=== PATIENT | male | born 1985 | race Caucasian/White ===

== ENCOUNTER 2018-05-28 02:59 | Emergency (ER) | payer OTHER ==
[~2018-05-28] VITALS: Ht 190.5 cm; Wt 120.2 kg
[~2018-05-28 02:59] MED LIST: AMOX875T PO; CLIN150C14 PO; HYDR-2155 PO; TRAM50TA PO
[2018-05-28] MEDS ORDERED: MVI, ADULT NO.4 WITH VIT K 10 ML, FOLIC ACID SYRINGE for ER 1 MG, THIAMINE INJ 100 MG i... IV ONE ×4 (03:15)
[2018-05-28] MEDS ORDERED: hydrOXYzine HCL 25 MG TABLET PO STA (03:16)
[2018-05-28] MEDS ORDERED: THIAMINE 200 MG/2 ML VIAL. IV ONE (03:20)
[2018-05-28] MEDS ORDERED: FOLIC ACID 5 MG/ML SYRINGE for ER IV ONE (03:20)
[2018-05-28] MEDS ORDERED: MVI, ADULT NO.4 WITH VIT K 10 ML VIAL IV ONE (03:20)
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
[2018-05-28 03:23] LABS: BASO % 0 % (0-3); EOS # 0.3 x10^3/uL (0.0-0.7); EOS % 3 % (0-3); HEMATOCRIT 45.9 % (39.0-53.0); HEMOGLOBIN 15.7 g/dL (13.0-17.5); LYMPH # 2.4 x10^3/uL (1.0-4.8); LYMPH % 27 % (24-48); MEAN CORPUSCULAR HEMOGLOBIN 32 pg (25-35); MEAN CORPUSCULAR HGB CONC 34 g/dL (31-37); MEAN CORPUSCULAR VOLUME 95 fL (79-100); MONO # 0.6 x10^3/uL (0.0-1.1); MONO % 7 % (0-9); NEUT # 5.7 x10^3uL (1.8-7.7); NEUT % 63 % (31-73); PLATELET COUNT 284 x10^3/uL (140-400); RED BLOOD COUNT 4.86 x10^6/uL (4.30-5.70); RED CELL DISTRIBUTION WIDTH 13.7 % (11.5-14.5); WHITE BLOOD COUNT 9.1 x10^3/uL (4.0-11.0)
[2018-05-28 03:39] LABS: PLT ESTIMATE ADEQUATE (ADEQUATE)
[2018-05-28 03:43] LABS: ALBUMIN/GLOBULIN RATIO 0.9 (1.0-1.7); CALCIUM 8.4 mg/dL (8.5-10.1); CREATININE 1.1 mg/dL (0.7-1.3); GFR 77.6; POTASSIUM 3.3 mmol/L (3.5-5.1); TOTAL BILIRUBIN 0.4 mg/dL (0.2-1.0); TOTAL PROTEIN 8.3 g/dL (6.4-8.2)
[2018-05-28 04:38] LABS: BARBITURATES NEG (NEG); BENZODIAZEPINES NEG (NEG); CANNABINOIDS NEG (NEG); CLARITY,URINE CLEAR; COCAINE NEG (NEG); COLOR,URINE YELLOW; METHADONE NEG (NEG); OPIATES NEG (NEG); PHENCYCLIDINE NEG (NEG)
[2018-05-28 04:39] LABS: BACTERIA,URINE 0 /HPF (0-FEW); BILIRUBIN,URINE NEG (NEG); GLUCOSE,URINE NEG (NEG); NITRITE,URINE NEG (NEG); RBC,URINE 0 /HPF (0-2); SQUAMOUS EPITHELIAL CELL,UR OCC /LPF; UROBILINOGEN,URINE 0.2 mg/dL (0.2 mg/dL); WBC,URINE RARE /HPF (0-4)
[2018-05-28 04:40] LABS: AMPHETAMINE/METHAMPHETAMINE NEG (NEG)
[2018-05-28] MEDS ORDERED: KETOROLAC 30 MG/ML VIAL. IV ONE (05:00)
[2018-05-28] MEDS ORDERED: LORazepam 2 MG/ML VIAL IV ONE (06:15)
[2018-05-28 11:02] VITALS: BP 124/96
== END 2018-05-28 11:08 | disposition home or self-care (01) ==
LOC: ER 02:59 → EEVIPCON 02:59 → ER 11:08
DX: R45.851 Suicidal ideations (principal); F10.129 Alcohol abuse with intoxication, unspecified; F41.9 Anxiety disorder, unspecified; M54.89 Other dorsalgia; Z88.6 Allergy status to analgesic agent; Z88.5 Allergy status to narcotic agent; Y90.7 Blood alcohol level of 200-239 mg/100 ml
CPT/HCPCS: 36415; 80053; 80307; 81001; 82947; 85025; 96365; 96375; 99284; G0480; J1885; J2060; J7030

== ENCOUNTER 2019-10-01 02:04 | Inpatient (IN) | payer OTHER ==
[2019-10-01] VITALS (20 sets, daily range): BP systolic 101–168; BP diastolic 60–92
[~2019-10-01] VITALS: Ht 190.5 cm; Wt 117.4 kg
[2019-10-01] MEDS ORDERED: IV RINGERS SOLUTION,LACTATED 1,000 ML IV SCH (02:16)
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
[2019-10-01] MEDS ORDERED: SODIUM BICARB ADULT 8.4% 50 MEQ/50 ML DISP.SYRIN. IV ONE (02:30)
[2019-10-01] MEDS ORDERED: SODIUM BICARBONATE 50 MEQ/50 ML VIAL. ONE (02:34)
[2019-10-01 02:43] LABS: BASO # 0.1 x10^3/uL (0.0-0.2); BASO % 1 % (0-3); EOS # 0.1 x10^3/uL (0.0-0.7); EOS % 1 % (0-3); HEMATOCRIT 42.7 % (39.0-53.0); HEMOGLOBIN 14.8 g/dL (13.0-17.5); LYMPH # 2.4 x10^3/uL (1.0-4.8); LYMPH % 23 % (24-48); MEAN CORPUSCULAR HEMOGLOBIN 32 pg (25-35); MEAN CORPUSCULAR HGB CONC 35 g/dL (31-37); MEAN CORPUSCULAR VOLUME 93 fL (79-100); MONO # 0.6 x10^3/uL (0.0-1.1); MONO % 6 % (0-9); NEUT # 7.2 x10^3uL (1.8-7.7); NEUT % 69 % (31-73); PLATELET COUNT 255 x10^3/uL (140-400); RED BLOOD COUNT 4.61 x10^6/uL (4.30-5.70); RED CELL DISTRIBUTION WIDTH 13.5 % (11.5-14.5); WHITE BLOOD COUNT 10.5 x10^3/uL (4.0-11.0)
[2019-10-01 02:47] LABS: BGAS PH 7.5 (7.35-7.46)
[2019-10-01 02:58] LABS: ETHANOL < 10 mg/dL (0-10)
[2019-10-01 02:59] LABS: ACETAMIN < 2.0 mcg/mL (10-30)
[2019-10-01 03:01] LABS: BACTERIA,URINE 0 /HPF (0-FEW); BILIRUBIN,URINE NEG (NEG); CLARITY,URINE CLEAR; COLOR,URINE YELLOW; GLUCOSE,URINE NEG (NEG); NITRITE,URINE NEG (NEG); RBC,URINE 0 /HPF (0-2); SQUAMOUS EPITHELIAL CELL,UR OCC /LPF; UROBILINOGEN,URINE 0.2 mg/dL (0.2 mg/dL); WBC,URINE OCC /HPF (0-4)
[2019-10-01 03:03] LABS: AMPHETAMINE/METHAMPHETAMINE NEG (NEG); BARBITURATES NEG (NEG); BENZODIAZEPINES NEG (NEG); CANNABINOIDS NEG (NEG); COCAINE NEG (NEG); METHADONE NEG (NEG); OPIATES NEG (NEG); PHENCYCLIDINE NEG (NEG)
--- NOTE | 2019-10-01 03:04 | EKG ---
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
--- NOTE | 2019-10-01 03:06 | RAD ---
EXAM: AP View of the chest DATE: 10/01/2019 2:16 AM INDICATION: Reason: Overdose on large amount of pills / Spl. Instructions: / History: COMPARISON: No Prior FINDINGS: The heart is not enlarged. Mediastinal and hilar contours are normal. No focal parenchymal airspace opacity. No pleural effusion or pneumothorax. IMPRESSION: 1. No radiographic evidence for acute cardiopulmonary process. Electronically signed by: Carlyle Munoz MD (10/01/2019 3:03 AM) [id number]
[2019-10-01 03:07] LABS: ALBUMIN 4.1 g/dL (3.4-5.0); CALCIUM 9.1 mg/dL (8.5-10.1); CREATININE 1.3 mg/dL (0.7-1.3); DIRECT BILIRUBIN 0.2 mg/dL (0.0-0.2); GFR 63.6; MAGNESIUM 1.8 mg/dL (1.8-2.4); TOTAL BILIRUBIN 0.8 mg/dL (0.2-1.0); TOTAL PROTEIN 7.8 g/dL (6.4-8.2)
[2019-10-01 03:19] LABS: POTASSIUM 2.8 mmol/L (3.5-5.1)
[2019-10-01] MEDS ORDERED: MAGNESIUM HYDROXIDE 2,400 MG/30 ML ORAL.SUSP. PO ONE (03:30)
[2019-10-01] MEDS ORDERED: POTASSIUM CHLORIDE 20 MEQ TABLET.ER. PO ONE (03:30)
[2019-10-01] MEDS: IPRATRPIUM/ALBUTEROL 0.5/2.5MG 3 ML NEBU. NEB SCH ×4 (05:18→19:45)
--- NOTE | 2019-10-01 05:30 | EKG ---
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
[2019-10-01] MEDS: IV RINGERS SOLUTION,LACTATED 1,000 ML IV SCH ×3 (05:45→17:04)
[2019-10-01 06:36] LABS: ACETAMIN < 2.0 mcg/mL (10-30); SALIC 2.8 mg/dL (2.8-20.0)
[2019-10-01] MEDS ORDERED: QUET100T PO (07:20)
--- NOTE | 2019-10-01 08:30 | NUR ---
The patient, RABIA GONZALEZ, 34 y/o, M admitted by MARTÍNEZ TESFAYE MD, was given written information regarding hospital policies, unit procedures and contact persons. Valuables were checked and left in room. Patient has clothes, wallet and empty bottle of Seroquel. Nurse attempted to call sisterPayton but phone number did not work. Nurse also attempted to call patients cell phone but phone was turned off. Patient arrived to unit via EMS to ICU 2, vitals obtained and within normal limits. O2 sats remains at 96% on room air, placed on 2L and CO2 monitoring. Respirations at 7-9, using accessory muscles and snoring. Appears to be heavily sedated and not responding to staff or sternal rub. Pupils pinpoint and reactive. [place] placed upon arrival to unit with 800cc of clear output noted. Respiratory and Dr. Tesfaye notified of patients condition, will monitor patient for respiratory depression due to overdose of Seroquel. Dr Tesfaye at this times states patient is stable and to continue to monitor, orders to give patient K+20MEQ IV and CMP for AM. Per ER nurse, patient states that he took around 3000mg or the entire bottle of 100mg tablets of Seroquel.
[2019-10-01 08:36] LABS: BASO # 0.1 x10^3/uL (0.0-0.2); BASO % 1 % (0-3); EOS # 0.2 x10^3/uL (0.0-0.7); EOS % 2 % (0-3); HEMATOCRIT 39.2 % (39.0-53.0); HEMOGLOBIN 13.7 g/dL (13.0-17.5); LYMPH # 2.1 x10^3/uL (1.0-4.8); LYMPH % 22 % (24-48); MEAN CORPUSCULAR HEMOGLOBIN 32 pg (25-35); MEAN CORPUSCULAR HGB CONC 35 g/dL (31-37); MEAN CORPUSCULAR VOLUME 93 fL (79-100); MONO # 0.6 x10^3/uL (0.0-1.1); MONO % 7 % (0-9); NEUT # 6.4 x10^3uL (1.8-7.7); NEUT % 68 % (31-73); PLATELET COUNT 231 x10^3/uL (140-400); RED BLOOD COUNT 4.23 x10^6/uL (4.30-5.70); RED CELL DISTRIBUTION WIDTH 13.4 % (11.5-14.5); WHITE BLOOD COUNT 9.5 x10^3/uL (4.0-11.0)
--- NOTE | 2019-10-01 08:48 | EKG ---
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
[2019-10-01 09:10] LABS: ALBUMIN 3.5 g/dL (3.4-5.0); ALBUMIN/GLOBULIN RATIO 1.1 (1.0-1.7); CALCIUM 8.3 mg/dL (8.5-10.1); CREATININE 1.1 mg/dL (0.7-1.3); GFR 77.1; POTASSIUM 3.4 mmol/L (3.5-5.1); TOTAL BILIRUBIN 0.9 mg/dL (0.2-1.0); TOTAL PROTEIN 6.8 g/dL (6.4-8.2)
--- NOTE | 2019-10-01 09:34 | HP ---
ADMIT DATE: 10/01/2019 ATTENDING PHYSICIAN: Martínez Tesfaye MD CHIEF COMPLAINT: Drug overdose. HISTORY OF PRESENT ILLNESS: The patient is a 34-year-old gentleman admitted through the ED with suicidal ideations. He states that he had a bottle of Seroquel tablets 100 mg every, 30 pills. He stated when he was awake, "I was trying to kill myself." He presented with sedation. He states that there has been previous attempt to kill himself. He has underlying depression, anxiety and he has chronic alcoholism. He also is a heavy smoker. No other family is available here. He is a poor historian. There is definite previous psychiatric history with suicide attempt. PAST MEDICAL HISTORY: Significant for the depression and anxiety, chronic alcoholism, bipolar depression. ALLERGIES: he has allergies to MORPHINE and TRAMADOL. MEDICATIONS: Prescription meds Seroquel 100 mg daily. He took the whole bottle. Evidently it was a full bottle. FAMILY HISTORY: Unobtainable. REVIEW OF SYSTEMS: Unobtainable. PHYSICAL EXAMINATION: GENERAL: When I saw him, this is a healthy young man who is asleep and poorly arousable. VITAL SIGNS: His initial vital signs showed a blood pressure of 130/60, his pulse was 94 per minute when I saw him. Respiratory rate 10 per minute, oxygen saturation 100% on 2 liters of supplemental oxygen. HEENT: Head is without trauma. Pupils are reactive. There is an old scar over the left eyebrow. Sclerae are nonicteric. Oropharynx is clear. NECK: Supple. No stridor at this time. No thyromegaly or airway obstruction. He has good air movement. LUNGS: Otherwise clear with good air movement. CARDIOVASCULAR: Showed regular heart tones. No obvious gallops. Peripheral pulses are palpable and full. ABDOMEN: Soft, nontender, no organomegaly. Bowel sounds were hypoactive. EXTREMITIES: Showed no cyanosis or edema. NEUROLOGIC: The patient is fast asleep and poorly arousable. A [place] catheter is in place. PERTINENT LABORATORY STUDIES: Hemoglobin is 14.8 g/dL with white count of 10,500. Chemistry panel showed potassium of 2.8 mEq. Electrolytes otherwise within normal range. Liver functions were normal. Toxicology; salicylate level was negative. Opiate screen negative. Tylenol level negative. The rest of the urine drug screen is negative. Alcohol level less than 10. ASSESSMENT: 1. This 34-year-old gentleman in a suicide attempt took a whole bottle of Seroquel. He is very sedated from the medication. 2. Underlying bipolar depression. 3. Previous history of suicide attempt. 4. Anxiety component. 5. Incidental finding of hypokalemia, asymptomatic. PLAN: 1. Admit to the ICU. 2. I will order some oral supplementation with serial chemistries. 3. We will monitor his airway status saturations and heart rate. 4. [place] catheter in place. 5. N.p.o. until he wakes. 6. Serial chemistries. MARTÍNEZ TESFAYE MD DR: LUCINA/sara JOB#: [id number] / [id number]
[2019-10-01] MEDS: POTASSIUM CHLORIDE 20MEQ 100 ML IV SCH ×2 (10:00→10:57)
--- NOTE | 2019-10-01 10:30 | NUR ---
Patient moaning and arouses to light-moderate painful stimuli, at times patient will sit up in bed and then lay back and produce a strong cough. Nurse performs oral suction at time due to coughing up sputum. Patients vitals remain stable, respirations remain at 9-10. Nurse spoke with poison control in regards to recent EKG results, states that QTC is a little better. Notified poison control that physician stated there is no need to have EKG monitoring q3h and would like this discontinued. Poison Control, [place] stated "that is okay, it is important that we saw the trend within the first 6 hours. It would be important to have another EKG be completed every shift or in the morning." Nurse confirmed that an EKG will be ordered tomorrow AM. Poison Control also stated to observe any elevation within the AVR on the EKG monitoring as this can show if patient is close to having seizures. Poison control faxed protocol at this time.
--- NOTE | 2019-10-01 12:39 | NUR ---
Patient resting, appears to be arousing more. Starting to sit up and look at staff but is still not verbal or responding appropriately.
--- NOTE | 2019-10-01 16:27 | EKG ---
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
--- NOTE | 2019-10-01 17:15 | NUR ---
Patient awake and starting to respond to staff and requesting something to drink. Able to swallow without difficulty and was able to finish around 250 of water. Patient remains on 1:1 observation. Patient appears restless and picking at bedding but able to redirect. Will continue to monitor.
[2019-10-01] MEDS ORDERED: LABETALOL 20 MG/4 ML DISP.SYRIN. IVP PRN (18:00)
--- NOTE | 2019-10-01 18:00 | NUR ---
Patient started to hallucinate and jumped out of bed, patient assisted back onto bedside by nursing staff. Nurse notified security and plastic sheets finishing supervisor for [employer]. During this time patients HR elevated to 189, patient started to breath heavily, nursing staff were able to reposition back into bed and redirect patient explaining that he is in a safe environment.
--- NOTE | 2019-10-01 18:10 | NUR ---
Dr Rodgers notified of patients condition. Patient states that he had chest pain and pointed to middle of chest. Nurse asked patient if he was continueing to have chest pain, patient shook head no. HR at this time remained in 140s. BP Stable. Orders to give Labetolol 10mg PRN q2h if HR over 150s. Patient is very anxious, hallucinating and picking at things like the blanket and appears to be seeing things that are not there. Patient is able to verbalize wants but at times does not make sense but is requesting water and wanting to go home.
--- NOTE | 2019-10-01 18:30 | NUR ---
Patient continues to be very agitated and restless, per Poison Control: No labetalol due to cardiac effects and recommend to only give Ativan when patient starts to become restless. Recommend 2-5mg per dose to get initial control q15min till control and then 1-2mg. 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 States we are treating like ETOH Withdrawl and there will be a 22hr half life. Dr Rodgers notified by Brigid TIRADO, orders to give Ativan 1mg q 2 hour prn and EKG.
--- NOTE | 2019-10-01 19:45 | NUR ---
Treatment not given. Patient has no pulmonary history. Patient's lung sounds are clear. Patient has a resting heart rate in the 110's-120 and is agitated. Treatments were ER 24 order. Patient does not require scheduled treatments. Albuterol prn could be ordered incase a treatment is needed. Nagi BELTRAN
--- NOTE | 2019-10-01 22:37 | EKG ---
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
--- NOTE | 2019-10-01 23:00 | NUR ---
Spoke to rep from Poison control regarding pt status. We talked current VS and that he was running a temp 101.3 orally with flushed face. She said that is part of the reaction to the seroquel dose he took. We talked about intake and output and that he wasn't taking anything in orally recommend IVFs. She asked what latest two EKG reading were in comparison to each and to continue to monitor. AVR if greater than two boxes on the R or QRS greater than 110 they would recommend bicarb replacement. We discussed the potassium being replaced earlier. And that another EKG will be taken in the am and set of labs. Just continue to watch his progress and a rep will call back in the morning. Placing 3 ice packs to pt side to help lower the temp and decreased the room temp and kept only a sheet on pt.
[2019-10-01] MEDS ORDERED: ACETAMINOPHEN 650 MG SUPP.RECT. PR PRN (23:30)
[2019-10-01] MEDS: IV NORMAL SALINE 1,000ML 1,000 ML IV SCH (23:38)
[2019-10-02] VITALS (21 sets, daily range): BP systolic 98–171; BP diastolic 58–111
--- NOTE | 2019-10-02 04:57 | NUR ---
Pt sleeping/sedated currently. VSS, afebrile, on 2l o2 per NC with co2 monitoring. Pt able to squeeze my hands with both of his hands at my 0400 assessment. Pt has required multiple doses of ativan to get through his agitated/impulsive state. Pt to have am labs drawn and another EKG done. Pt tolerating IVFs with good output in martines. Continue with 1:1 sitter.
[2019-10-02 06:37] LABS: BASO # 0.1 x10^3/uL (0.0-0.2); BASO % 0 % (0-3); EOS # 0.1 x10^3/uL (0.0-0.7); EOS % 0 % (0-3); HEMATOCRIT 40.7 % (39.0-53.0); HEMOGLOBIN 14.1 g/dL (13.0-17.5); LYMPH # 1.3 x10^3/uL (1.0-4.8); LYMPH % 7 % (24-48); MEAN CORPUSCULAR HEMOGLOBIN 32 pg (25-35); MEAN CORPUSCULAR HGB CONC 35 g/dL (31-37); MEAN CORPUSCULAR VOLUME 93 fL (79-100); MONO # 0.9 x10^3/uL (0.0-1.1); MONO % 5 % (0-9); NEUT # 15.6 x10^3uL (1.8-7.7); NEUT % 87 % (31-73); PLATELET COUNT 216 x10^3/uL (140-400); RED BLOOD COUNT 4.39 x10^6/uL (4.30-5.70); RED CELL DISTRIBUTION WIDTH 13.5 % (11.5-14.5); WHITE BLOOD COUNT 17.9 x10^3/uL (4.0-11.0)
[2019-10-02 06:55] LABS: ALBUMIN 3.3 g/dL (3.4-5.0); ALBUMIN/GLOBULIN RATIO 0.9 (1.0-1.7); CALCIUM 8.6 mg/dL (8.5-10.1); CREATININE 1.2 mg/dL (0.7-1.3); GFR 69.7; POTASSIUM 4.1 mmol/L (3.5-5.1); TOTAL BILIRUBIN 1.1 mg/dL (0.2-1.0)
[2019-10-02] MEDS: IV NORMAL SALINE 1,000ML 1,000 ML IV SCH ×2 (07:24→17:33)
--- NOTE | 2019-10-02 08:30 | NUR ---
Patient remains 1:1 due to fall and SI precautions. Patient continues to be restless and agitated, startles easily and picks at things in the air and at blankets. Patient is not able to verbalize where he is or why he is here, continues to have very garbled, slurred speech. Mouth is dry with no open sores noted, continue to perform oral care and swabs.
--- NOTE | 2019-10-02 10:30 | NUR ---
Spoke to rep from Poison control regarding pt status. Nurse discussed current VS, labs and patients condition; states that he is having serotonin syndrome and will fax over information in regards to management of serotonin toxicity. No elevated temps so far this shift, will continue to monitor. Discussed intake and output, recommend IVFs. She asked what latest EKG reading was and states that it is better and to continue to monitor.
[2019-10-02 11:21] LABS: % ATYL 1 % (0-0); % BANDS 4 % (0-9); % BASOS 1 % (0-3); % LYMPHS 10 % (24-48); % MONOS 4 % (0-10); % SEGS 80 % (35-66)
[2019-10-02 11:22] LABS: PLT ESTIMATE ADEQUATE (ADEQUATE)
--- NOTE | 2019-10-02 12:19 | NUR ---
Patient continues to be restless and trying to get out of bed, continues to pick at the blankets and grab at nursing staff. Additional PRN ativan given. Vitals obtained and within normal limits. Awaiting for Dr Fritz to see patient. [place] cath in place with adequate output and continues on IV fluids for Hydration.
--- NOTE | 2019-10-02 12:44 | EKG ---
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
--- NOTE | 2019-10-02 17:40 | RAD ---
CHEST AP ONLY INDICATION: Reason: shortness of breath , leukocyosis / Spl. Instructions: / History: . COMPARISON STUDY: 10/01/2019. FINDINGS: Lungs: Low lung volume. No focal airspace disease. Normal pulmonary vasculature. Pleura: No pleural effusion or pneumothorax. Heart and Mediastinum: Stable cardiomediastinal silhouette and great vessels. IMPRESSION: Low lung volume. No consolidation. Electronically signed by: Viktor Shaw MD (10/02/2019 5:37 PM) [facility]ITAL[facility]
--- NOTE | 2019-10-02 17:52 | NUR ---
Dr Fritz here to see patient, plan is to increase PRN Ativan and to give 4mg at this time. Patient attempting to get out of the bed and remains restless. Nurse spoke with poison control, states to ask doctor to monitor for clonus, repeat EKG in AM and monitor CK and renal function. Recommends administrations of ativan or use of physostigmine. Chest xray completed due to elevated temp and risk of aspiration. Patient remains on room air at this time, sats 96%. Able to take small sips of water and bites of pudding when patient is more awake.
--- NOTE | 2019-10-02 18:36 | PN ---
DATE: 10/02/2019 SUBJECTIVE: The patient is a 34-year-old male patient who was admitted to the Emergency Department with suicidal attempt. He apparently took about 30 tablets of 100 mg strength of Seroquel, stating that he was trying to kill himself. He presented with sedation. He states that has been previous attempts to kill himself. He has underlying bipolar disorder and has also chronic alcoholism. He is also a heavy smoker. Apparently, his brother stated that he has been doing well, has never attempted suicide before and according to nursing staff, he apparently slept from 8:30 in the morning to 5:30 in the afternoon, became very agitated and in consultation with the Poison Control Center. He was started on Ativan. They recommended also Physostigmine injection to reverse the anticholinergic effect; however, it is not available in our pharmacy. OBJECTIVE: GENERAL: When I saw him this afternoon, he was clearly very flushed, very confused, hallucinating, attempting to findings things that not available. There is definitely no pallor, jaundice, cyanosis or thyromegaly. No jugular venous distention. No limb edema. VITAL SIGNS: His heart rate was 104, blood pressure was 139/94, temperature was 97.8, respiratory rate was 19 and oxygen saturation was 98%. HEAD, EYES, EARS, NOSE AND THROAT: Showed normocephalic and atraumatic. NECK: Supple. HEART: Showed normal first and second heart sounds. No gallop, rub or murmur. CHEST: Shows central trachea, equal bilateral expansion, air entry, vesicular sounds. No crepitation or rhonchi. ABDOMEN: Distended, soft, nontender. NEUROLOGIC: He is definitely very confused, hallucinating. I do not see any nystagmus. All his cranial nerves are intact. He moves all extremities without difficulty, but he is very confused. His intake over the last 24-hour was 1000 mL. No output was recorded. LABORATORY DATA: His lab work this morning showed that his serum sodium was 137, potassium 4.1, chloride 103, bicarbonate 26, anion gap of 8, BUN 10, creatinine 1.2, estimated GFR was 69 mL per minute. His glucose 111, calcium was 8.6. Total bilirubin 1.1. AST, ALT, alkaline phosphatase were normal. CK was only 151. Total protein was 7, albumin 3.3. TSH was slightly high at 5.230. His white cell count definitely has gone up to 17,900; hemoglobin 14; hematocrit 44; MCV 93; and platelet count 216,000. His prothrombin time, INR, aPTT and D-dimer were normal. Urinalysis was unremarkable and toxic screen was essentially negative. His chest x-ray yesterday showed that the heart size is normal in size. Mediastinal hilar contours are normal. No focal parenchymal airspace opacity is seen. No pleural effusion or pneumothorax. He apparently has a low-grade fever last night. In fact, his temperature went up to 101.3 and his white cell count has risen up to 17,000 raising the prospect that he might have aspirated. PLAN: My plan is to continue with the IV fluid, continue with IV Ativan. We will check his chest x-ray again and we will check another 12-lead EKG tomorrow. I would also repeat his labs tomorrow and I have started him on IV antibiotic. ESTELA MURRELL MD DR: JUNAID/sara JOB#: [id number] / [id number]
[2019-10-02] MEDS ORDERED: HALOPERIDOL LACT 5 MG/ML VIAL. IVP ONE (21:15)
[2019-10-03] VITALS (24 sets, daily range): BP systolic 92–134; BP diastolic 54–94
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
[2019-10-03] MEDS: IV NORMAL SALINE 1,000ML 1,000 ML IV SCH ×2 (03:57→15:26)
--- NOTE | 2019-10-03 05:20 | NUR ---
Pt resting comfortable at this time, sedated but arousable. Pt remains g
--- NOTE | 2019-10-03 05:21 | NUR ---
Pt head of bed greater than 30 degrees entire shift. Pt has been shifting hips frequently throughout the shift from left to right buttock. ROM performed throughout shift as well as pt very active with own extremities. Pt continues on 2L o2 per NC sats 96%. pt afebrile and VSS. Pt speech remains garbled but at times have to carefully listen to make out a word here and there. Pt relaxed with one time haldol dose last night. Have suctioned pt 4-5 times with yaunker orally during shift to assist with maintaining patent airway. Pt tolerating IVFs and voiding per martines with decent amount. Spoke with Dr. Fritz twice last night and poison control as well, see intervention communication charting for those. Pt will respond to name and tactile stimuli, following a few simple commands ie. squeezing my hands and opening mouth with command.
--- NOTE | 2019-10-03 05:54 | NUR ---
Pt woken up for blood work. After complete, I performed oral care on pt and offered some water. Pt wanted some. Pt upright 90 angle and water thickened to nectar consistency. Pt tolerated well and drank about 90ml. I said to pt, "Do you know you are [facility]?" and he said, "In [place], [place]?" I said, "yes." Then I said, "Do you know why you are here?" and he shook his head no. I gave a simple explaination of why he came here and that we need to get the meds out of his body so he can get better and get the help he needs to live a happy and healthy life. Once finished with all the water he wanted, put his head back to >30 degrees and he is back resting now.
[2019-10-03 06:36] LABS: ALBUMIN 3.4 g/dL (3.4-5.0); ALBUMIN/GLOBULIN RATIO 0.8 (1.0-1.7); CALCIUM 9.1 mg/dL (8.5-10.1); CREATININE 1.2 mg/dL (0.7-1.3); GFR 69.7; MAGNESIUM 2.3 mg/dL (1.8-2.4); POTASSIUM 4.2 mmol/L (3.5-5.1); TOTAL BILIRUBIN 0.9 mg/dL (0.2-1.0); TOTAL PROTEIN 7.5 g/dL (6.4-8.2)
[2019-10-03 06:46] LABS: HEMATOCRIT 42.8 % (39.0-53.0); HEMOGLOBIN 14.4 g/dL (13.0-17.5); RED BLOOD COUNT 4.5 x10^6/uL (4.30-5.70); RED CELL DISTRIBUTION WIDTH 13.6 % (11.5-14.5); WHITE BLOOD COUNT 11.4 x10^3/uL (4.0-11.0)
--- NOTE | 2019-10-03 13:16 | PN ---
DATE: 10/03/2019 SUBJECTIVE: The patient is resting, slightly propped up in bed, in no apparent respiratory distress. He is easily arousable, continued to have difficulty talking. Otherwise, he is much better. He is not agitated or restless and was sleeping comfortably. H has eaten his breakfast this morning. PHYSICAL EXAMINATION: GENERAL: When I examined him, he looked well with no pallor, jaundice, cyanosis or thyromegaly. No jugular venous distention or limb edema. VITAL SIGNS: Her heart rate was 85, blood pressure was 109/64, temperature was 97.8, respiratory rate was 12 and oxygen saturation was 95% on 2 liters of oxygen. HEAD, EYES, EARS, NOSE AND THROAT: Showed normocephalic, atraumatic. NECK: Supple. HEART: Showed normal first and second heart sounds. No gallop, rub or murmur. CHEST: Clear to auscultation. No crepitation or rhonchi. ABDOMEN: Distended, soft, nontender. No guarding or rigidity. No organomegaly. All hernial orifice intact. Bowel sounds normal. NEUROLOGIC: He was sleepy, but arousable. All cranial nerves are intact. He moves extremities without difficulty. His intake was 2600, output was 5650. LABORATORY DATA: As of this morning, his serum sodium was 140, potassium 4.2, chloride 103, bicarbonate 25, anion gap of 12, BUN 13, creatinine 1.2, estimated GFR was 69 mL per minute. His glucose 94, calcium was 9.1, magnesium was 2.3. Total bilirubin, AST, ALT, alkaline phosphatase were normal. CK was 197. Total protein was 7.5, albumin was 3.4. White cell count was 11,400, hemoglobin 14, hematocrit 42, MCV 95, and platelet count 216,000. ASSESSMENT: This is a 34-year-old male patient who was admitted with an overdose of Seroquel, taking 30 tablets of 100 mg strength of Seroquel. He stated that he has had previous attempts to kill himself and he was trying to basically kill himself, apparently he is known to have bipolar disorder, has also chronic alcoholism and he is also a heavy smoker. He is definitely much improved. He is not restless, agitated. He is not hallucinating. All his vital signs are improving. He continued to have difficulty talking. We will continue with IV fluid, continue with Haldol for sedation if necessary. We will contact the [facility] to evaluate him for placement in an inpatient psych facility. ESTELA MURRELL MD DR: JUNAID/sara JOB#: [id number] / [id number]
--- NOTE | 2019-10-03 16:44 | NUR ---
Nurse told patient that his brother called to check on him. Patient stated "They only care when stuff like this happens", "That's why I did it". "That's why I'll do it again as soon as I leave this place" Patient is concerned about his job. Patient states he needs his phone to call his boss and make sure he still has a job.
[2019-10-03] MEDS: NICOTINE 21MG PATCH. TD SCH (20:15)
--- NOTE | 2019-10-03 22:14 | NUR ---
Pt expresses concern for his 3 children and states he "has to keep his job for them." He also expresses pain in his left shoulder radiating down to his lumbar back, only on the left side. Pt eating pudding and drinking ice water without choking or nausea. PO Tylenol administered for back pain. Will continue to monitor.
[2019-10-03] MEDS: ACETAMINOPHEN 325 MG TABLET PO PRN (22:27)
[2019-10-04] VITALS (8 sets, daily range): BP systolic 124–145; BP diastolic 82–96
[2019-10-04] MEDS: IV NORMAL SALINE 1,000ML 1,000 ML IV SCH ×2 (00:20→11:30)
[2019-10-04] MEDS: ACETAMINOPHEN 325 MG TABLET PO PRN (06:00)
--- NOTE | 2019-10-04 06:22 | NUR ---
Pt increasingly agitated over past hour. Repeatedly "jokes" about going out to the curb to smoke. Attempted to pull off transparent dressing of IVs. States "I was hoping to go home today," as pt ambulated from ICU room to Med Surg room. Pt verbally expressed he did not recall speaking to [facility] staff via Zoom call last night. Mood and intentions vary from one hour to the next. Will continue to monitor. Addendum: 10/04/19 at 0625 by KIEL HERNANDEZ RN Pt removed Nicotine patch stating it did nothing for him.
[2019-10-04] MEDS: NICOTINE 21MG PATCH. TD SCH (07:23)
--- NOTE | 2019-10-04 07:24 | NUR ---
Patient ambulated to hallway, nursing staff assisted patient back to bed. Patient joking with staff and making statements "i might have a girlfriend after i leave here." Then patient started to ask nurse when he will get to leave and if he could have something for anxiety. Nurse asked patient how long he has been on Seroquel, patient stated "for years and i dont like that shit". Patient then stated to nurse" ya i know i took around 9000 of that seroquel and it didn't get the job done." Patient stated to PLUMBING CONTRACTOR "Im not sick i just want to kill myself." PRN Ativan given at this time, with no effectiveness.
[2019-10-04] MEDS ORDERED: HALOPERIDOL LACT 5 MG/ML VIAL. ONE (08:27)
--- NOTE | 2019-10-04 08:29 | NUR ---
Nurse placed call to Dr Fritz in regards to patients status, patient continues to want to leave facility and is asking when the doctor will be here so he can go home. Nurse spoke with [facility] in regards to patients status, according to paperwork that was faxed patient is an involuntary hold and information has been faxed to the [facility] attorneys office. Nurse spoke with [facility] Attorneys office, stated that the information will be presented to Judge Chawla today for review. Patient appears agitated and requests to leave, PRN Haldol administered. Patient aware and understood medication was being given to help with his agitated.
[2019-10-04] MEDS ORDERED: HALOPERIDOL LACT 5 MG/ML VIAL. IVP PRN (08:30)
[2019-10-04] MEDS ORDERED: ZIPRASIDONE IM 20 MG VIAL. IM ONE (09:00)
--- NOTE | 2019-10-04 09:09 | NUR ---
At this time patient was in hallway and requesting to leave facility, stated "where is the doctor? Im ready to leave this place.. you guys keep lying to me and this is bullshit." Patient unable to stand without swaying back and forth, required supervised assist to prevent falls. At this time nurse explained to the patient that he has been deemed an involuntary hold. Patient appeared confused and stated "so i can leave then and you can give me my wallet and pants?" Nurse explained further in detail to patient that this is being reviewed by the radio electronics officer and he will have to be placed at an inpatient facility. Patient appears to take his anger out on himself, clutches his fists and control his anger. Then states "I should have gotten the job done when i took all those pills"
--- NOTE | 2019-10-04 12:00 | NUR ---
Patient continues to rest comfortably with 1:1 continuos monitoring. Received Geodon at [address] Fritz here at this time. Nurse received updated insurance information, will notify Riley from [facility] to see if patient is able to be placed at another facility.
[2019-10-04] MEDS ORDERED: ZIPRASIDONE IM 20 MG VIAL. IM PRN ×2 (13:15)
--- NOTE | 2019-10-04 13:15 | NUR ---
Per AIRCRAFT RIVETER, patient awakened and was very pleasant, ate 50% of lunch and was sitting on side of bed eating. Stated he was making comments about his brother having everything and hes always had nothing. Then patient asked where his wallet was, which when aide stated it was in the safe this made patient very upset. Patient out at the nurses station, asking when he can leave the facility and why he cant have his belongings. Patient is very worried that he will lose his job and apartment. Patient has been employed by [employer] since May and appears to really like working there. Patient also stated that he has a check in his wallet that is suppose to go to his landlord. This is really upsetting to the patient and continues to make statements like "you cant make me stay here, just give me my stuff and ill come back. I just want to go." Dr reddy here at this time explained to patient. Nursing supervisor carbon electrodes and security here as well to observe. Pt given PRN Geodon for agitation and aggression, patient pulled sleeve up and stated "i dont care just do it."
--- NOTE | 2019-10-04 13:33 | PN ---
DATE: 10/04/2019 SUBJECTIVE: The patient is resting, slightly propped up in bed, in no apparent distress. He apparently has received Haldol and Geodon and he is now comfortable. He was very agitated and wanted to go home. He was evaluated apparently by the [facility] and the patient is an involuntary hold and he is waiting for placement at the [facility]. PHYSICAL EXAMINATION: GENERAL: On examining him, he looked well and was clearly in no apparent respiratory distress. No pallor, jaundice, cyanosis or thyromegaly. No jugular venous distention. No limb edema. VITAL SIGNS: Heart rate was 69, blood pressure was 133/83, temperature was 98.4, respiratory rate was 16, and oxygen saturation was 98% on room air. HEAD, EYES, EARS, NOSE AND THROAT: Showed he is normocephalic, atraumatic. NECK: Supple. HEART: Showed normal first and second heart sounds. No gallop or murmur. CHEST: Clear to auscultation. No crepitation or rhonchi. ABDOMEN: Distended, soft, nontender. No guarding or rigidity. No organomegaly. All hernial orifice intact. Bowel sounds normal. NEUROLOGIC: He was lethargic, but arousable. All cranial nerves are intact. He moves extremities without difficulty. His intake over the last 24 hours was 2800, output was 4225. LABORATORY DATA: As of yesterday, his serum sodium 140, potassium 4.2, chloride 103, bicarbonate 25, anion gap of 12, BUN 13, creatinine 1.2, estimated GFR was 69 mL per minute. His calcium was 9.1, magnesium was 2.3. Total bilirubin, AST, ALT, alkaline phosphatase were normal. Total protein was 7.5, albumin 3.4. His white cell count was 11,400, hemoglobin 14, hematocrit 42, MCV 95, and platelet count 216,000. Urinalysis was essentially unremarkable and his chest x-ray showed low lung volumes, but no consolidation. ASSESSMENT: In summary, this is a 34-year-old male patient who was admitted with intentional overdose on about 3000 mg of Seroquel. The patient has underlying bipolar disorder together with chronic alcoholism. He is also a heavy smoker. The plan is obviously going to be transferred to [place] as soon as bed becomes available. He is now in involuntary hold and his case is ____ currently by the hadoop developer ____ as soon as the bed becomes available. ESTELA MURRELL MD DR: JUNAID/sara JOB#: [id number] / [id number]
--- NOTE | 2019-10-04 14:00 | NUR ---
Nurse spoke with Triston, brother, and mother, Carissa in regards to patients situation. Nurse updated family in regards to how the patient has been today and what the plan is in regards to transferring to a inpatient facility. Family very supportive in regards to patients care and is wanting him to get help.
--- NOTE | 2019-10-04 17:00 | NUR ---
[facility] Called, states they have orders to accept patient at this time. Patient awakening for supper, sitting out side of room and eating. Patient calm and cooperative at this time. Nurse will call brother and have him come up to get belongings at this time.
--- NOTE | 2019-10-04 17:30 | NUR ---
Patient verbalized and understands that he is going to [place]. Patient was appropriate, calm and cooperative when nurse explained that he would be going to an inpatient facility. Brother here during this time and will be taking some of belongings. Report given to CELESTINO Manzo at [facility]. EMS notified and awaiting arrival.
--- NOTE | 2019-10-04 18:00 | NUR ---
Patient left via EMS at this time with discharge packet and belongings. Brother here at this time, nurse notified brother prior to discharge to come see patient leave. Brother took wallet and keys home with him. Patient calm and cooperative at time of discharge, PRN haldol given prior to leaving.
== END 2019-10-04 18:00 | DRG 918 ==
LOC: ER 02:04 → 1 SOUTH 04:00 → ICU 07:12 → 1 SOUTH 10-04 05:30
PROVIDERS: ADMIT Internal Medicine; ATTEND Internal Medicine
DX: T43.592A Poisoning by other antipsychotics and neuroleptics, intentional self-harm, initial encounter (principal); F31.30 Bipolar disorder, current episode depressed, mild or moderate severity, unspecified; F10.20 Alcohol dependence, uncomplicated; F17.200 Nicotine dependence, unspecified, uncomplicated; F41.9 Anxiety disorder, unspecified; E87.6 Hypokalemia; Z91.5 Personal history of self-harm; Z88.8 Allergy status to other drugs, medicaments and biological substances; Y92.89 Other specified places as the place of occurrence of the external cause; Z79.899 Other long term (current) drug therapy
CPT/HCPCS: 36415; 71045; 80048; 80053; 80076; 80307; 80329; 81001; 82550; 82803; 83690; 83735; 83880; 84443; 84484; 85007; 85025; 85027; 85379; 85610; 85730; 93005; 94640; 96361; 96374; 99285; G0480; J1630; J2060; J3480; J3486; J3490; J7120; J7030

== ENCOUNTER 2020-01-24 16:48 | Emergency (ER) | payer MEDICAID, OTHER ==
[~2020-01-24] VITALS: Ht 190.5 cm; Wt 114.2 kg
[~2020-01-24 16:48] MED LIST changes: +QUET100T PO
[2020-01-24 17:04] VITALS: BP 140/88
[2020-01-24] MEDS ORDERED: PROCHLORPERAZINE 10 MG/2 ML VIAL. IM ONE (17:30)
[2020-01-24] MEDS ORDERED: PROCHLORPERAZINE 10 MG/2 ML VIAL. IV ONE (17:30)
[2020-01-24] MEDS ORDERED: KETOROLAC 15 MG/ML VIAL. IVP ONE (17:30)
[2020-01-24] MEDS ORDERED: KETOROLAC 30 MG/ML VIAL. IM ONE (17:30)
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
[2020-01-24] MEDS ORDERED: PROC10TA57 PO (17:51)
[2020-01-24] MEDS ORDERED: IBUP600T16 PO (17:51)
[2020-01-24] MEDS ORDERED: DEXAMETHASONE 4 MG TABLET PO ONE (18:00)
== END 2020-01-24 17:58 | disposition home or self-care (01) ==
LOC: ER 16:48
DX: R51 Headache (principal); R11.0 Nausea; H53.8 Other visual disturbances; F10.20 Alcohol dependence, uncomplicated; F41.9 Anxiety disorder, unspecified; F31.9 Bipolar disorder, unspecified; F17.210 Nicotine dependence, cigarettes, uncomplicated; Z88.6 Allergy status to analgesic agent; Z88.5 Allergy status to narcotic agent; Y90.9 Presence of alcohol in blood, level not specified
CPT/HCPCS: 96372; 99284; J0780; J1885; J8540

== ENCOUNTER → 2020-03-23 | Outpatient (CLI) | payer OTHER ==
[~2020-03-23] MED LIST changes: +IBUP600T16 PO; +PROC10TA57 PO
[2020-03-23 15:02] LABS: BASO # 0.1 x10^3/uL (0.0-0.2); BASO % 1 % (0-3); EOS # 0.2 x10^3/uL (0.0-0.7); EOS % 2 % (0-3); HEMATOCRIT 48.6 % (39.0-53.0); HEMOGLOBIN 16.5 g/dL (13.0-17.5); LYMPH % 20 % (24-48); MEAN CORPUSCULAR HEMOGLOBIN 32 pg (25-35); MEAN CORPUSCULAR HGB CONC 34 g/dL (31-37); MEAN CORPUSCULAR VOLUME 95 fL (79-100); MONO # 0.6 x10^3/uL (0.0-1.1); MONO % 6 % (0-9); NEUT % 71 % (31-73); PLATELET COUNT 288 x10^3/uL (140-400); RED BLOOD COUNT 5.13 x10^6/uL (4.30-5.70); RED CELL DISTRIBUTION WIDTH 12.9 % (11.5-14.5); WHITE BLOOD COUNT 9.9 x10^3/uL (4.0-11.0)
[2020-03-23 15:10] LABS: ALBUMIN 4.4 g/dL (3.4-5.0); CALCIUM 9.6 mg/dL (8.5-10.1); CREATININE 1.2 mg/dL (0.7-1.3); GFR 69.3; POTASSIUM 4.4 mmol/L (3.5-5.1); TOTAL BILIRUBIN 0.4 mg/dL (0.2-1.0); TOTAL PROTEIN 8.8 g/dL (6.4-8.2)
[2020-03-24 04:09] LABS: HEMOGLOBIN A1C 5.3 % (4.8-5.6)
[2020-03-24 16:58] LABS: FREE T4 0.93 ng/dL (0.76-1.46); THYROID STIM HORMONE (TSH) 3.81 uIU/mL (0.358-3.740)
== END ==
LOC: LAB 14:27
PROVIDERS: ATTEND Physician Assistant
DX: Z79.899 Other long term (current) drug therapy (principal)
CPT/HCPCS: 36415; 80053; 80061; 83036; 84439; 84443; 84480; 85025